=== PATIENT | female | born 1965 ===

== ENCOUNTER 2017-04-30 07:21 | Day surgery (SDC) | payer OTHER ==
[2017-04-30] MEDS ORDERED: Lactated Ringer's 500 ML IV ONE (07:40)
[2017-04-30 07:53] VITALS: TEMP 96.9; O2SAT 100
[2017-04-30 08:39] VITALS: RESP 16
[2017-04-30 08:51] VITALS: BP 112/72; PULSE 55
== END 2017-04-30 09:40 | disposition home or self-care (01) ==
LOC: H.ENDO 07:21
PROVIDERS: ATTEND Internal Medicine Gastroenterology
DX: K30 Functional dyspepsia (principal); K44.9 Diaphragmatic hernia without obstruction or gangrene; K31.9 Disease of stomach and duodenum, unspecified

== ENCOUNTER 2017-06-19 07:22 | Emergency (ER) | payer OTHER ==
[2017-06-19 07:27] VITALS: BP 123/64; TEMP 97
[2017-06-19 07:34] VITALS: PULSE 66; RESP 20; O2SAT 98
--- NOTE | 2017-06-19 07:52 | ED PDOC ---
HPI: Allergic Reaction Time Seen by Provider: 06/19/17 07:33 Chief Complaint (Nursing): Abnormal Skin Integrity Chief Complaint (Provider): Allergic Reaction History Per: Patient History/Exam Limitations: no limitations Onset/Duration Of Symptoms: Days (x3) Current Symptoms Are (Timing): Still Present Context: Travel ([place]) Associated Symptoms: Skin Rash, Itching Additional Complaint(s): Nat Edwards is a 51 year old female, with no past medical history, who presents to the emergency department complaining of an allergic reaction onset for 3 days. Patient reports she recently came from a trip to [place]. The morning after she noticed a rash in her body. She reports itchiness and lightheadedness but denies any bug bites, cough, nausea, vomit, chest pain, and shortness of breath. No further medical complaints. PMD: None provided Past Medical History Reviewed: Historical Data, Nursing Documentation, Vital Signs Vital Signs: Last Vital Signs Temp 97 F L 06/19/17 07:31 Pulse 66 06/19/17 07:31 Resp 20 06/19/17 07:31 BP 123/64 06/19/17 07:31 Pulse Ox 98 06/19/17 07:31 - Medical History PMH: No Chronic Diseases - Surgical History Surgical History: - Family History Family History: States: Unknown Family Hx - Social History Current smoker - smoking cessation education provided: No Alcohol: Occasional Drugs: Denies - Home Medications Home Medications: Ambulatory Orders Medication Instructions Recorded DiphenhydrAMINE [Benadryl] 25 mg PO TID PRN 5 Days 06/19/17 Famotidine [Pepcid] 20 mg PO DAILY PRN #6 tab 06/19/17 predniSONE [predniSONE Tab] 20 mg PO BID 5 Days 06/19/17 - Allergies Allergies/Adverse Reactions: Allergies Allergy/AdvReac Type Severity Reaction Status Date / Time morphine Allergy Verified 06/19/17 07:46 Review of Systems ROS Statement: Except As Marked, All Systems Reviewed And Found Negative Constitutional: Negative for: Fever Cardiovascular: Negative for: Chest Pain Respiratory: Negative for: Cough, Shortness of Breath Gastrointestinal: Negative for: Nausea, Vomiting, Abdominal Pain Skin: Positive for: Rash Neurological: Positive for: Other (lightheadedness) Physical Exam - Reviewed Nursing Documentation Reviewed: Yes Vital Signs Reviewed: Yes - Physical Exam Appears: Positive for: Well, Non-toxic, No Acute Distress Head Exam: Positive for: ATRAUMATIC, NORMAL INSPECTION, NORMOCEPHALIC Skin: Positive for: Warm, Rash (blanching streaks on b/l inner thigh, front upper leg, upper abdomen and chest, forearm and inner biceps; nontender; no dc; no induration or fluctuance) Eye Exam: Positive for: EOMI, Normal appearance, PERRL ENT: Positive for: Normal ENT Inspection Neck: Positive for: Painless ROM, Supple Cardiovascular/Chest: Positive for: Regular Rate, Rhythm Respiratory: Positive for: Normal Breath Sounds. Negative for: Respiratory Distress Gastrointestinal/Abdominal: Positive for: Bowel Sounds, Soft. Negative for: Tenderness Back: Positive for: Normal Inspection. Negative for: L CVA Tenderness, R CVA Tenderness Extremity: Positive for: Normal ROM. Negative for: Tenderness, Pedal Edema Neurologic/Psych: Positive for: Alert, Oriented - ECG O2 Sat by Pulse Oximetry: 98 (RA) Pulse Ox Interpretation: Normal - Progress ED Course And Treament: 830: Stable. AAOx3. Does not want any meds that will make her sleepy and does not want steroids. Likely urticaria. Disposition - Clinical Impression Clinical Impression: Urticaria - Disposition Referrals: [facility] [Outside] - 06/20/17 Disposition Time: 08:19 Condition: STABLE Additional Instructions: Return if not better in 3 days. Prescriptions: DiphenhydrAMINE [Benadryl] 25 mg PO TID PRN 5 Days PRN Reason: Itching / Pruritus Famotidine [Pepcid] 20 mg PO DAILY PRN #6 tab PRN Reason: Pain predniSONE [predniSONE Tab] 20 mg PO BID 5 Days Instructions: Urticaria (ED) Forms: [employer] ([place])
== END 2017-06-19 08:00 | disposition home or self-care (01) ==
LOC: H.ER 07:22
DX: L50.0 Allergic urticaria (principal)